=== PATIENT | female | born 1985 | race Caucasian/White ===

== ENCOUNTER 2022-04-26 14:07 | Outpatient (RCR) | payer OTHER, SELFPAY ==
--- NOTE | 2022-04-27 14:36 | HP.OTFCE.D ---
FCE D/C Summary - Discharge DARIO RINCON was seen for a one time visit for an FCE on 04/26/22 and is discharged.
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
== END 2022-04-26 19:00 | disposition home or self-care (01) ==
LOC: OT 14:07
PROVIDERS: PCP Physician Assistant Medical; Referring Provider Physician Assistant Medical; Visit Provider Physician Assistant Medical
DX: M54.50 Low back pain, unspecified (principal)
CPT/HCPCS: 97750